=== PATIENT | female | born 1955 | race American Indian/Alaskan Native ===

== ENCOUNTER 2018-10-16 07:00 | Day surgery (SDC) | payer OTHER ==
[~2018-10-16] VITALS: Ht 160 cm; Wt 83.5 kg
--- NOTE | ~2018-10-16 | OR ---
[facility] [address] [place], [place] [address] Draft DATE OF OPERATION: 10/16/2018 SURGEON: Zora Junior MD PREOPERATIVE DIAGNOSIS: Incarcerated incisional hernia (supraumbilical area). POSTOPERATIVE DIAGNOSIS: Incarcerated incisional hernia (supraumbilical area). PROCEDURES PERFORMED: 1. Repair of incarcerated incisional hernia. 2. Implantation of Prolene mesh underlay technique (submuscular position), prolonged complicated, difficult. ANESTHESIA: General endotracheal, Karyna Cortney, [employer]; and local 30 mL of 0.25% Marcaine with epinephrine and post operative ultrasound-guided TAP block per Anesthesia. DRAINS: 7 mm Dane. INDICATION: This 63-year-old woman is well known to me from the past having undergone sigmoid resection following perforated diverticulitis a number of years ago. She subsequently underwent incisional hernia repair of a low suprapubic incision as well as inguinal hernia repair in 2005. She is known to have had laparoscopic cholecystectomy, though I have no record of having done that myself. She has developed vague abdominal pain on the left side and central abdomen and was evaluated by her primary physician, Dr. Afshin roper, ultimately having a CT scan, which showed a sizable defect in the supraumbilical area in the region of the prior laparoscopic trocar site. Incarceration of small bowel was noted in the subcutaneous space. She was admitted at this time to undergo repair of the hernia. She understands the risks of bleeding, infection, recurrence, and other unforeseen complications. She understands and she wished to proceed. FINDINGS: PATIENT NAME: BONIFACIO MILLER OPERATIVE REPORT DATE OF : 51 REPORT #: [id number] PHYSICIAN: ZORA JUNIOR MD PCP: [facility] REPORT IS CONFIDENTIAL AND NOT TO BE RELEASED WITHOUT AUTHORIZATION [facility] [address] [place], [place] [address] Draft The fascia was quite attenuated indeed. The fascial defect itself was at least 6 cm and herniated small bowel within a well-developed hernia sac was noted. Ultimately, complete reduction of the abdominal contents was accomplished and the space beneath the rectus well developed to allow for implantation of mesh with peritoneal and posterior rectus sheath as a barrier to intraabdominal viscera. Reapproximation of midline fascia was accomplished as well. The operation was prolonged, complicated, and difficult taking three times longer than usual. DESCRIPTION OF PROCEDURE: The patient was brought to the operating room, given a general endotracheal anesthetic. Preoperative antibiotic Ancef was given. Sequential compression device stockings used and heparin subcutaneously administered. The abdomen was prepared with chlorhexidine solution and draped sterilely. An IO band dressing was applied. A supraumbilical incision was made in the area of palpable herniated viscus. Dissection carried through the subcutaneous tissue with electrocautery and ultimately blunt dissection. Rather bulky and thick-walled hernia sac was noted. This was dissected free circumferentially ultimately identifying the fascial layer itself. The hernia sac was opened and small bowel was noted to be within the hernia sac. This was reduced into the abdomen. Omental adhesions to the hernia sac were freed with electrocautery. The plane between the overlying fascia and the underlying peritoneum was developed, but a good plane could not be well developed circumferentially and therefore a retrorectus position was deemed appropriate for mesh implantation. The posterior sheath and fused peritoneum were freed circumferentially. Peritoneal defect after excision of the hernia sac was secured with a running 2-0 Vicryl suture. At least 6 cm were freed circumferentially, allowing for the peritoneum and fused posterior rectus sheath to be a biologic barrier for implantation of Prolene mesh. A 6 inch x 6 inch piece of Prolene mesh was cut to an elliptical configuration and secured in an underlay technique with interrupted 0 Prolene sutures with Prolene pledgets. Midline fascia was sequentially able to be reapproximated similarly with 0 Prolene suture and Prolene pledgets. Through a separate stab incision, a 7 mm flat Dane drain was placed. Irrigation was undertaken in each of the layers during the course of operation. Photographs were taken throughout as well. The drain was secured to the skin with nylon suture. Karlos's layer was reapproximated with interrupted 2-0 Vicryl. The skin closed with running subcuticular 3-0 Vicryl. Steri-Strips were applied as was a Mepilex silver sponge dressing. The operation was prolonged, complicated, and difficult in large part due to abdominal obesity lasting three times longer than usual. PATIENT NAME: BONIFACIO MILLER OPERATIVE REPORT DATE OF : 51 REPORT #: [id number] PHYSICIAN: ZORA JUNIOR MD PCP: [facility] REPORT IS CONFIDENTIAL AND NOT TO BE RELEASED WITHOUT AUTHORIZATION [facility] [address] [place] [id number] Draft MD MADELYN Dick/JOSE /[id number] cc: Afshin Adorno MD Copies: AFSHIN ADORNO MD ~ PATIENT NAME: BONIFACIO MILLER DORIAN OPERATIVE REPORT DATE OF : 51 REPORT #: [id number] PHYSICIAN: ZORA JUNIOR MD PCP: [facility] REPORT IS CONFIDENTIAL AND NOT TO BE RELEASED WITHOUT AUTHORIZATION
--- NOTE | 2018-10-16 12:32 | NUR ---
10/16/18 Elton2 Yaquelin Levin 1222- PT ARRIVES TO PACU EASILY AROUSABLE TO VOICE. PT VERY DROWSY AND FALLS BACK TO SLEEP WHEN NOT BEING TALKED TO. RESP EVEN AND UNLABORED. OXYGEN SAT HIGH 90'S TO 100% ON 6L VIA MASK. 1225- PT REPORTS NO PAIN OR NAUSEA. 1227- OXYGEN TURNED OFF. OXYGEN SAT LOW TO MID 90'S ON RA. RESP EVEN AND UNLABORED.
[2018-10-16] MEDS ORDERED: IBUPROFEN600 MG PO (12:50)
[2018-10-16] MEDS ORDERED: OXYCODON-ACETA1 EAC2 PO (12:50)
[2018-10-16] MEDS ORDERED: MAPAP325 MG PO (12:51)
--- NOTE | 2018-10-16 13:05 | NUR ---
PT RETURNS TO DS ROOM 2 FRPM PACU ON 2 L VIA NC. PT REPORTS 4/10 PAIN AND DENIES THE NEED FOR PAIN MEDICATIONS. PT DENIES NAUSEA. SANYA DRAIN IN PLACE WNL. SURGICAL DRESSING C/D/I. ABD BINDER IN PLACE. ICE WATER PROVIDED TO PT. CALL LIGHT WITHIN REACH.
--- NOTE | 2018-10-16 14:17 | NUR ---
PT RESTING IN BED WITH EYES CLOSED. RESP EVEN AND UNLABORED. PT REMAINS ON 2 L VIA NC WITH SATS 96%. FAMILY AT BEDSIDE. PT DENIES NAUSEA AND STATES SHE HAS NO PAIN. PT REPORTS SHE WILL NEED TO USE THE RESTROOM SOON BUT STILL FEELS DIZZY. CALL LIGHT WITHIN REACH. VSS.
--- NOTE | 2018-10-16 14:44 | NUR ---
MICHA RN TO PT'S BEDSIDE. PT REPORTS NEEDING TO USE BATHROOM TO VOID. PT REPORTS FEELING DIZZY AND DOES NOT FEEL LIKE SHE CAN STAND AT THIS TIME. BEDPAN PROVIDED. PT VOIDS 350 ML YELLOW URINE WITHOUT DIFFICULTY. CALL LIGHT WITHIN REACH. PT DENIES OTHER NEEDS AT THIS TIME.
--- NOTE | 2018-10-16 15:15 | NUR ---
RN AT BEDSIDE. PT REPORTS NEEDING TO USE THE BATHROOM. BEDSIDE COMMODE PROVIDED. PT STAND BY ASSIST TO COMMODE AND TOLERATES. PT REPORTS SOME DIZZINESS BUT DENIES NAUSEA/LIGHTHEADEDNESS. PT VOIDS 700 ML WITHOUT DIFFICULTY. PT BACK TO BED. IV SALINE LOCKED. PT REPORTS 1/10 PAIN. SOUP AND CRACKER PROVIDED. VSS. FAMILY AT BEDSIDE. CALL LIGHT WITHIN REACH. SCDS ON AND APPLIED.
--- NOTE | 2018-10-16 16:10 | NUR ---
DR. JUNIOR IN ROOM TO TALK TO PT AND FAMILY. PT AGREEABLE WITH PLAN OF CARE. PRESCRIPTION GIVEN TO PT'S FAMILY TO FILL. VSS. PT REPORTS 1/10 PAIN IN SURGICAL SITE BUT REPORTS 5/10 HEADACHE. PT DENIES NAUSEA AND TOLERATES PO FLUIDS AND FOOD. IV DC'D WNL. CALL LIGHT WITHIN REACH.
--- NOTE | 2018-10-16 17:20 | NUR ---
PT MEETS DC CRITERIA. PT'S RETURNS TO TRANSPORT PT HOME. DC INSTRUCTIONS WITH PRECAUTIONS PROVIDED. PT VERBALIZES UNDERSTANDING AND DENIES FURTHER QUESTIONS. SANYA DRAIN EDUCATION PROVIDED AND PT RETURNS DEMONSTRATION OF SANYA TUBE DRAINING. DRAIN PUTS OUT 15 ML SANGUINOUS FLUID. PT DENIES PAIN AND NAUSEA. PT TRANSPORTED IN WHEELCHAIR TO VEHICLE DRIVEN BY IN STABLE CONDITION
== END 2018-10-16 17:20 | disposition home or self-care (01) ==
LOC: DS 07:00
PROVIDERS: Surgery
PROC: 0WUF0JZ Supplement Abdominal Wall with Synthetic Substitute, Open Approach (ICD-10-PCS; principal; 2018-10-16 08:45)
DX: K43.0 Incisional hernia with obstruction, without gangrene (principal); E66.3 Overweight; Z98.890 Other specified postprocedural states; Z78.0 Asymptomatic menopausal state; Z90.49 Acquired absence of other specified parts of digestive tract; Z68.32 Body mass index [BMI] 32.0-32.9, adult
CPT/HCPCS: 00830; C1781; J0131; J0330; J0690; J1100; J1644; J1885; J2704; J2795; J3475; J7120

== ENCOUNTER 2019-04-17 06:53 | Emergency (ER) | payer OTHER ==
[~2019-04-17] VITALS: Ht 160 cm; Wt 81.0 kg
[~2019-04-17 06:53] MED LIST: IBUPROFEN600 MG PO; MAPAP325 MG PO; OXYCODON-ACETA1 EAC2 PO
[2019-04-17] MEDS ORDERED: ASPIR 8181 MG PO (07:20)
--- NOTE | 2019-04-17 14:49 | EKG ---
[facility] [address] [facility] [place], [place] [address] Signed Normal sinus rhythm Normal ECG No previous ECGs available Confirmed by MONIQUE PERDOMO DO ([id number]) on 04/17/2019 2:49:33 PM Electronically Signed By: MONIQUE PERDOMO DO 04/17/19 1449 PATIENT NAME: BONIFACIO MILLER Electrocardiogram DATE OF : 51 PHYSICIAN: MONIQUE PERDOMO DO REPORT #: [id number] REPORT IS CONFIDENTIAL AND NOT TO BE RELEASED WITHOUT AUTHORIZATION
== END 2019-04-17 11:02 | disposition home or self-care (01) ==
LOC: ED 06:53
DX: R07.9 Chest pain, unspecified (principal); Z79.82 Long term (current) use of aspirin
CPT/HCPCS: 71046; 80053; 83735; 84484; 85025; 93005; 93010; 99285-25

== ENCOUNTER 2023-02-04 12:00 | Day surgery (SDC) | payer MEDICARE, OTHER ==
[~2023-02-04] VITALS: Ht 160 cm; Wt 86.4 kg
[~2023-02-04 12:00] MED LIST changes: +ASPIR 8181 MG PO
[2023-02-04 12:23] VITALS: BP 150/90
[2023-02-04] MEDS ORDERED: PRILOSEC OTC20 MG PO (12:28)
[2023-02-04] MEDS ORDERED: VITAMIN B122500 MCG PO (12:29)
[2023-02-04] MEDS ORDERED: VITAMIN D310 MC2 PO (12:29)
--- NOTE | 2023-02-04 13:39 | NUR ---
02/04/23 1339 Halle Christie 1322 PT TO PACU SLEEPY BUT AROUSABLE DENIES PAIN AND NAUSEA.
[2023-02-04 14:17] VITALS: BP 110/78
--- NOTE | 2023-02-06 11:49 | PATH ---
[facility] [address] [place], [place] [address] Signed SPECIMEN(S): A COLON POLYP AT 40 CM SPECIMEN SOURCE: A. COLON POLYP AT 40 CM CLINICAL HISTORY: Pre: Diverticulosis, history of sigmoid resection for perforated diverticulitis. Post: Diverticulosis and polyp x 1. FINAL PATHOLOGIC DIAGNOSIS: Colon polyp at 40 cm: - Tubular adenoma (one fragment). JVR:smsendy:[id number] MICROSCOPIC EXAMINATION: Histologic sections of all submitted blocks are examined by light microscopy. These findings, together with the gross examination, support the pathologic diagnosis. GROSS DESCRIPTION: The specimen, labeled and designated "Alan, colon polyp at 40 cm," is received in formalin and consists of three kaminski soft tissue fragments, ranging from 0.1-0.3 cm. Entirely submitted in (A1). VB (under the direct supervision of a pathologist) The Gross Description was prepared using a voice recognition system. The report was reviewed for accuracy; however, sound-alike word errors, addition and/or deletions may occur. If there is any question about this report, please contact Client Services. PERFORMING LABORATORY: Technical component was performed by [facility], [address] [place] [id number] (CLIA# [id number]). Professional interpretation was performed by [facility], [address] [place] [id number] (CLIA#: [id number]). Diagnostician: Cesar Whitten MD Pathologist Electronically Signed 02/06/2023 PATIENT NAME: BONIFACIO MILLER PATHOLOGY DATE OF : 51 REPORT #: [id number] PHYSICIAN: MIKEY STEIN PCP: UMM ARTIS MD REPORT IS CONFIDENTIAL AND NOT TO BE RELEASED WITHOUT AUTHORIZATION
--- NOTE | 2023-02-07 18:00 | OR ---
[facility] [address] [place], [place] [address] Signed DATE OF OPERATION: 02/04/2023 SURGEON: Zora Junior MD PREOPERATIVE DIAGNOSES: 1. Colon screening. 2. History of sigmoid resection 2004 for perforated diverticulitis. POSTOPERATIVE DIAGNOSES: 1. Diverticular changes of colon. 2. Widely patent coloproctostomy. 3. Small adenomatous polyp left colon at 50 cm. PROCEDURE: Total colonoscopy to the cecum with cold morcellation polypectomy x1. ANESTHESIA: Intravenous sedation; fentanyl 100 mcg and Versed 4 mg. INDICATION: This 67-year-old woman is a patient of Umm Artis MD at [facility]. She underwent sigmoid resection by ar in 2004 following perforated diverticulitis treated by drain and subsequent complete resection. She is noted to have continued diverticulosis but no symptoms from then at all. The patient has no family history of colon cancer. She does have underlying gastroesophageal reflux and takes Prilosec on a daily basis. Her last colonoscopy was in 2019. She had colonoscopy in 2013 prior to that. She is admitted at this time to undergo screening colonoscopy. She understands the risk of bleeding, infection, and perforation. FINDINGS: The prep was excellent. Complete colonoscopy was undertaken to the cecum without question. There were numerous diverticula both small and large in the remaining left colon. The coloproctostomy was widely patent. There is a small adenomatous polyp at 50 cm which was excised with cold morcellation technique. DESCRIPTION OF PROCEDURE: The patient was brought to the endoscopy suite and placed in the lateral decubitus position, given intravenous sedation to the point of slurred speech and nystagmus. Digital rectal examination was normal. Electronically Signed By: ZORA JUNIOR MD 02/07/23 [facility] PATIENT NAME: BONIFACIO MILLER OPERATIVE REPORT DATE OF : 51 REPORT #: [id number] PHYSICIAN: ZORA JUNIOR MD PCP: UMM ARTIS MD REPORT IS CONFIDENTIAL AND NOT TO BE RELEASED WITHOUT AUTHORIZATION [facility] [address] [place], [place] [address] Signed An Olympus video colonoscope was passed in the rectum and manipulated throughout the colon ultimately intubating the cecum itself. The ileocecal valve and appendiceal orifice were normal. The scope was withdrawn from that point and examination throughout showed no sign of abnormality until approximately 50 cm from the anal verge, a small adenomatous polyp was noted, this was excised with cold morcellation technique. Numerous diverticula were seen in the remaining left colon. The coloproctostomy was widely patent. The rectum itself had no polyp or other abnormality. Retroflexed view was normal as well. The scope was removed and the patient was taken to the recovery room in good condition. CONCLUSION DIAGNOSES: 1. Small polyp x1. 2. Diverticulosis. PLAN: Recommend repeat colonoscopy in 5 to 7 years given polyp found at this time. Certainly, sooner if symptoms should develop. She will return to the ongoing care of Dr. Artis. MD MADELYN Dick/JOSE /[id number] cc: Umm Artis MD at [facility] Copies: ~ Electronically Signed By: ZORA JUNIOR MD 02/07/23 1800 PATIENT NAME: BONIFACIO MILLER OPERATIVE REPORT DATE OF : 51 REPORT #: [id number] PHYSICIAN: ZORA JUNIOR MD PCP: UMM ARTIS MD REPORT IS CONFIDENTIAL AND NOT TO BE RELEASED WITHOUT AUTHORIZATION
== END 2023-02-04 14:30 | disposition home or self-care (01) ==
LOC: OPS 12:00 → DS 12:00 → OPS 13:00
PROVIDERS: ATTEND Surgery
PROC: 0DBE8ZZ Excision of Large Intestine, Via Natural or Artificial Opening Endoscopic (ICD-10-PCS; principal; 2023-02-04 13:00)
DX: Z12.11 Encounter for screening for malignant neoplasm of colon (principal); D12.6 Benign neoplasm of colon, unspecified; K57.30 Diverticulosis of large intestine without perforation or abscess without bleeding; K21.9 Gastro-esophageal reflux disease without esophagitis; E66.9 Obesity, unspecified; Z90.49 Acquired absence of other specified parts of digestive tract; Z98.890 Other specified postprocedural states
CPT/HCPCS: 88305; 99153; G0500; J2250; J3010; J7121